=== PATIENT | female | born 1970 | race Two or more races ===

== ENCOUNTER 2022-05-18 10:23 | Emergency (ER) | payer OTHER ==
[~2022-05-18] VITALS: Ht 157.5 cm; Wt 69.9 kg
[2022-05-18] MEDS ORDERED: SERTRALINE20 MG/1 ML PO (10:40)
== END 2022-05-18 14:21 | disposition home or self-care (01) ==
LOC: ER 10:23
DX: S40.022A Contusion of left upper arm, initial encounter (principal); W19.XXXA Unspecified fall, initial encounter; Y93.9 Activity, unspecified; Y92.9 Unspecified place or not applicable; Y99.9 Unspecified external cause status